=== PATIENT | male | born 1950 | race Caucasian/White ===

== ENCOUNTER → 2016-10-01 | Outpatient (CLI) | payer OTHER, BC ==
[~2016-10-01] VITALS: Ht 180.3 cm; Wt 126.1 kg
[~2016-10-01] MED LIST: ALLOPURINOL100 MG PO; ALLOPURINOL300 MG PO; ASPIR 8181 M1 PO; ASPIRIN325 MG PO; ASPIRIN81 M1 PO; AVALIDE 150/1 TABLET PO; Aspirin E.C. PO; BACLOFEN10 MG PO; DAILY MULTIPLE1 EACH PO; DILAUDID2 MG PO; GEMFIBROZIL600 MG PO; GLUCOPHAGE1000 M1 PO; Glucophage PO; HUMALOG KW200 UNIT/1 SC; LANTUS 3 M100 UNITS/ SC; LANTUS 3 M100 UNITS1 SC; LANTUS100 UNIT/2 SQ; Lopid PO; MESTINON60 MG PO; METFORMIN HCL1000 MG PO; MULTIVITAMIN1 EAC2 PO; MULTIVITAMINS1 EAC2 PO; Mestinon PO; Motrin PO; NORCO 5/3251 TABLET PO; NOVOLOG PE100 UNITS/ SC; PREVACID30 MG PO; PYRIDOSTIGMINE60 MG PO; Prevacid PO; SIMVASTATIN20 MG PO; Theragran PO; VICTOZA 2-0.6 MG/0.1 SC; VICTOZA0.6 MG/0.2 SC; WELLBUTRIN SR200 MG PO; Wellbutrin SR PO; ZOCOR20 MG PO; ZOFRAN4 MG PO; ZYLOPRIM100 MG PO; ZYLOPRIM150 MG PO; Zocor PO; Zyloprim PO
[2016-10-01 13:01] LABS: POINT-OF-CARE METER ID UU13113694
[2016-10-01 13:50] LABS: POINT-OF-CARE METER ID UU13113819
== END | disposition home or self-care (01) ==
LOC: AMB 10:49
PROVIDERS: Internal Medicine Gastroenterology
DX: K31.9 Disease of stomach and duodenum, unspecified (principal); I85.00 Esophageal varices without bleeding; R10.13 Epigastric pain; K21.9 Gastro-esophageal reflux disease without esophagitis; M10.9 Gout, unspecified; E11.9 Type 2 diabetes mellitus without complications; I10 Essential (primary) hypertension; E66.9 Obesity, unspecified; Z68.35 Body mass index [BMI] 35.0-35.9, adult; G70.00 Myasthenia gravis without (acute) exacerbation; G47.30 Sleep apnea, unspecified
CPT/HCPCS: 71010; 82948; 88305; 88342 TC; 93005; J3010

== ENCOUNTER 2016-10-08 09:17 | Day surgery (SDC) | payer OTHER, BC ==
[~2016-10-08] VITALS: Ht 180.3 cm; Wt 108.1 kg
[2016-10-08 10:01] LABS: HEMATOCRIT 38.6 % (38.0-50.0); MCV 82.8 FL (86-99)
[2016-10-08] MEDS ORDERED: ALLOPURINOL100 MG PO (10:02)
[2016-10-08] MEDS ORDERED: ALLOPURINOL300 MG PO (10:02)
[2016-10-08 10:09] VITALS: BP 132/78
[2016-10-08 10:26] LABS: POINT-OF-CARE METER ID UU14174212; POINT-OF-CARE USER ID AHSRSCSLC11
[2016-10-08] MEDS ORDERED: NORCO 5/3251 TABLET PO (16:43)
[2016-10-08 18:46] VITALS: BP 135/72
[2016-10-08 19:33] VITALS: BP 150/81
[2016-10-08 21:30] VITALS: BP 140/67
[2016-10-08 22:15] VITALS: BP 141/67
[2016-10-08 23:40] VITALS: BP 140/67
[2016-10-09 07:55] VITALS: BP 123/65
[2016-10-09 11:29] VITALS: BP 120/62
[2016-10-09 15:20] VITALS: BP 131/59
[2016-10-09 16:00] VITALS: BP 131/59
== END 2016-10-09 18:36 | disposition home or self-care (01) ==
LOC: SDC 09:17 → 2SOUTH 16:17 → 2EAST 16:17 → 2SOUTH 16:17 → 2EAST 23:39
PROVIDERS: Surgery
DX: K80.10 Calculus of gallbladder with chronic cholecystitis without obstruction (principal); K42.0 Umbilical hernia with obstruction, without gangrene; E11.9 Type 2 diabetes mellitus without complications; K21.9 Gastro-esophageal reflux disease without esophagitis; M10.9 Gout, unspecified; Z79.4 Long term (current) use of insulin
CPT/HCPCS: 74300; 82948; 85014; 85018; 88304; 94799; C1769; G0378; J0330; J1170; J1885; J1940; J2405; J2710; J3010; J7120; S0020